=== PATIENT | male | born 1940 | race Caucasian/White ===

== ENCOUNTER → 2022-04-01 14:46 | Outpatient (CLI) | payer MEDICARE, SELFPAY ==
[2022-04-01 16:16] LABS: Prostate Specific Ag Screen 32.3 ng/ml (0.0-4.0)
== END ==
PROVIDERS: PCP Family Medicine; Visit Provider Urology
DX: Z12.5 Encounter for screening for malignant neoplasm of prostate (principal)
CPT/HCPCS: 36415; G0103

== ENCOUNTER → 2022-05-22 11:04 | Outpatient (CLI) | payer MEDICARE, SELFPAY | PROVIDERS: PCP Family Medicine; Visit Provider Urology | DX: R97.20 Elevated prostate specific antigen [PSA] (principal); Z01.812 Encounter for preprocedural laboratory examination; Z20.822 Contact with and (suspected) exposure to COVID-19 | CPT/HCPCS: C9803; U0003; U0005 ==

== ENCOUNTER 2022-05-24 09:28 | Day surgery (SDC) | payer MEDICARE, SELFPAY ==
[2022-05-23 08:48] VITALS: BMI 26.5
[2022-05-24 10:36] VITALS: BP 127/72; PULSE 85; RESP 17; TEMP 36.2; O2SAT 95
--- NOTE | 2022-05-24 10:57 | P.PN_ITS ---
[facility] Medical History BPH (benign prostatic hyperplasia) Surgical History History of colonoscopy Family History (Updated 05/23/22 @ 08:42 by Melvi Jones RN) Other No significant family history Social History Smoking Status: Never smoker alcohol intake: current substance use type: denies use current occupational status: retired Travel in the last 8 weeks: None housing: house [facility] Anesthesia Checklist Patient Identification Patient Identification: Arm Band Structural Data Admitted From: Home Planned Operative Procedure/s: Prostate BX Consent for Planned Operative Procedure(s) Verified: Yes Verified Documents: Surgical Consent and History and Physical NPO Status Verified Time NPO: 00:00 Additional verifications Anesthesia Reactions: Yes (agitation) Hx Blood Transfusions: No Blood Transfusion Reaction: No Airway Assessment C-Spine Mobility Assessed: Yes TMJ Mobility Assessed: Yes Dentition: Good Dentition Neurological Assessment Level of Consciousness: Awake and Alert Anesthesia Plan Anesthesia Risk discussed: Yes Anesthesia Plan: Verified ASA Class: II Anesthesia Type: MAC
[2022-05-24 11:45] VITALS: BP 108/62; PULSE 80; RESP 16; TEMP 36.1; O2SAT 93
[2022-05-24 11:55] VITALS: BP 98/60; PULSE 78; RESP 16; O2SAT 98
[2022-05-24 12:05] VITALS: BP 117/67; PULSE 76; RESP 16; O2SAT 96
[2022-05-24 12:15] VITALS: BP 110/64; PULSE 78; RESP 18; TEMP 36.1; O2SAT 95
--- NOTE | 2022-05-24 13:05 | EXP.OP.NOTE ---
Date of procedure: 05/24/22 Pre-op Diagnosis:: Elevated PSA Post-op Diagnosis:: Elevated PSA Procedure performed:: Prostate biopsy with transrectal ultrasound guidance Surgeon:: Uriah Mora MD CARPENTER AND JOINER:: Jac Chacon Anesthesia: MAC Estimated blood loss (mL): 0 Clinical Note:: 81-year-old white male recently seen in the office for BPH symptoms. His PSA returned at 32. He states he has never had a PSA before. His prostate examination revealed some firmness but no discrete nodule. Operative findings:: Patient's prostate measured at 28.8 cm?. There was some irregularity to the smooth muscle of the prostate especially at the bladder base. There were hypoechoic areas noted bilaterally. Operative note:: Patient taken to the operating room after informed consent was obtained. He was placed on the operating table and placed in the left lateral decubitus position. Monitored anesthesia care was administered. He had performed preoperative enema and oral antibiotics. His legs were brought up into a position and a transrectal ultrasound probe was placed into the rectum without difficulty. The prostate was visualized easily and was measured at 28.8 cm?. There was some heterogeneity to the prostate and hypoechoic areas were noted bilaterally as well as some irregularity at the bladder base. Local anesthetic was placed into each neurovascular bundle and 6 biopsies were taken from the right side and 3 from the left. No complications were noted and patient tolerated procedure well. Condition: stable Disposition: same day Specimens:: Prostate biopsies x9 Complications:: None
== END 2022-05-24 12:15 | disposition home or self-care (01) ==
PROVIDERS: PCP Family Medicine; Visit Provider Urology
DX: C61 Malignant neoplasm of prostate (principal); N40.0 Benign prostatic hyperplasia without lower urinary tract symptoms
CPT/HCPCS: 55700; 76942; 88305

== ENCOUNTER → 2022-05-30 09:43 | Outpatient (CLI) | payer MEDICARE, SELFPAY ==
--- NOTE | 2022-05-30 09:43 | NM_ITS ---
FINAL REPORT CLINICAL HISTORY: prostate cancer..pt has no pain 9:55 am 25.6 [facility] t[facility] MDP FINDINGS: EXISTING RELEVANT IMAGING STUDIES: No prior studies TECHNIQUE: The patient was injected with 25.6 mCi of technetium 99-MDP. 3 hour delayed images were obtained. FINDINGS: There are multiple foci of abnormal increased activity in the posterior ribs, thoracic and lumbar spines and the pelvis bilaterally consistent with osseous metastatic disease. Findings are most evident at approximately the T9 level. IMPRESSION: Widespread osseous metastatic disease. Recommend continued follow-up. Reviewed, Interpreted and Dictated by Christopher Longo MD Transcribed by Edgar Slaughter Authenticated and [facility]
== END ==
PROVIDERS: PCP Family Medicine; Visit Provider Urology
DX: C61 Malignant neoplasm of prostate (principal)
CPT/HCPCS: 78306; A9503

== ENCOUNTER → 2022-06-03 07:46 | Outpatient (CLI) | payer MEDICARE, SELFPAY ==
--- NOTE | 2022-06-03 07:46 | CT_ITS ---
FINAL REPORT TECHNIQUE: Axial images through the abdomen and pelvis were performed without contrast.This study was performed with techniques to keep radiation doses as low as reasonably achievable, (ALARA). Individualized dose reduction techniques using automated exposure control or adjustment of mA and/or kV according to the patient's size were employed. CLINICAL HISTORY: PROSTATE CANCER, dx 3 weeks ago FINDINGS: ABDOMEN: There are trace bilateral pleural effusions. Interstitial prominence is seen in the lung bases which is nonspecific but could represent mild edema. The heart size is normal. Limited images of the liver are unremarkable. The spleen is normal. No adrenal mass is identified. The aorta is normal in caliber. There is no significant free fluid. There is no nephrolithiasis. There is moderate right hydronephrosis and proximal hydroureter. Nonspecific hypodense lesion is seen the posterior mid left kidney measuring 15 mm. 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 There is bilateral iliac chain adenopathy, right greater than left, with the largest lymph node seen in the right external iliac chain measuring 21 mm. Findings are suspicious for metastatic disease. There is nonspecific wall thickening of the urinary bladder. Prostate is mildly enlarged. There is a tiny left inguinal hernia containing fat. Widespread blastic lesions are seen of the lower ribs, entire lumbar spine and bony pelvis consistent with metastatic disease. IMPRESSION: Metastatic adenopathy in the superior pelvis and retroperitoneum. Widespread bony metastasis. Moderate right hydronephrosis which may be related to prostate cancer. Reviewed, Interpreted and Dictated by Jim Antoine MD Transcribed by Pamela Slaughter Authenticated and [facility]
== END ==
PROVIDERS: PCP Family Medicine; Visit Provider Urology
DX: C61 Malignant neoplasm of prostate (principal)
CPT/HCPCS: 74176

== ENCOUNTER 2022-06-06 06:58 | Emergency (ER) | payer MEDICARE, SELFPAY ==
[2022-06-06 07:04] VITALS: BMI 26.4
[2022-06-06 07:09] VITALS: BP 148/86; PULSE 88; RESP 18; TEMP 36.8; O2SAT 95; BMI 26.4
[2022-06-06 07:26] LABS: Basophils # 0.1 K/mm3 (0-0.2); Basophils % 0.7 % (0.1-2.0); Eosinophils # 0.1 K/mm3 (0.0-0.4); Eosinophils % 1.2 % (0.1-12.0); Hematocrit 41.9 % (42.0-52.0); Hemoglobin 14.1 g/dL (14.1-18.0); Lymphocytes % 10.9 % (10-50); Mean Corpuscular HGB Conc 33.6 g/dL (31.8-35.4); Mean Corpuscular Hemoglobin 32.2 pg (27.0-31.2); Monocytes # 0.8 K/mm3 (0.1-1.0); Monocytes % 8.2 % (1.7-9.3); Neutrophils # 7.4 K/mm3 (1.8-7.8); Neutrophils % 79.1 % (37.0-80.0); Platelet Count 246 K/mm3 (142-424); Red Blood Count 4.37 M/mm3 (4.60-6.20); Red Cell Distribution Width 13.7 % (11.5-17.5); White Blood Count 9.3 K/mm3 (4.8-10.8)
[2022-06-06 07:33] LABS: Alanine Aminotransferase 15 U/L (12-78); Albumin/Globulin Ratio 1.3 (1.1-1.8); Alkaline Phosphatase 390 U/L (38-126); Anion Gap 13.9 mEq/L (5-15); Aspartate Amino Transferase 34 U/L (17-59); Bilirubin,Total 1.3 mg/dl (0.2-1.3); Blood Urea Nitrogen 14 mg/dl (9-20); Calcium 8.4 mg/dl (8.4-10.2); Carbon Dioxide 23 mmol/L (22.0-30.0); Chloride 98 mmol/L (98-107); Creatinine Clearance Estimated 59 mL/min (50-200); Estimated Glomerular Filt Rate 58 ml/min (>60); GFR (African American) 71 ML/MIN (>60); Globulin 3.2 g/dL (1.3-3.2); Glucose 113 mg/dl (74-100); Potassium 3.9 mmoL/L (3.5-5.1); Sodium 131 mmol/L (136-145); Total Protein,Serum 7.2 g/dl (6.3-8.2)
--- NOTE | 2022-06-06 07:33 | PC.NURSE ---
initial output was 300, another bowden bag attached due to leak in the catheter bag. pt tolerated well.
[2022-06-06 07:38] LABS: Appearance,Urine CLEAR (Clear); Bilirubin,Urine Negative (Negative); Blood, Urine 1+ (Negative); Color,Urine YELLOW (Yellow); Glucose,Urine (UA) Negative (Negative); Ketones,Urine Negative (Negative); Leukocyte Esterase,Urine Negative (Negative); Microscopic, Urine URINE MICROSCOPIC (MICROSCOPIC); Nitrate,Urine Negative (Negative); Protein,Urine Negative (Negative); Specific Gravity, Urine <= 1.005 (1.005-1.030); Urobilinogen,Urine 0.2 EU/dl (0.2)
--- NOTE | 2022-06-06 07:38 | PC.NURSE ---
urine and blood sent to the lab
--- NOTE | 2022-06-06 07:42 | PC.NURSE ---
bowden cath out put 900 cc of urine
--- NOTE | 2022-06-06 07:46 | HMH.EDUROGM ---
Discharge Plan Disposition Patient Disposition: Home, Self-Care Chief Complaint: Urogenital-Male Prescriptions Prescriptions: No Action tamsulosin 0.4 mg capsule 0.4 mg PO HS levofloxacin 500 mg tablet 500 mg PO DAILY Rx Instructions: take one tablet the day before surgery, one the day of surgery and one the day after Referrals Follow up/Referrals: Vic Tan [Primary Care Provider] - See instructions Uriah Mora MD [Staff Physician] - See instructions Clinical Impressions Clinical Impression: Acute retention of urine, Prostate cancer metastatic to bone Instructions Patient Instructions: How to Care for Your Montanez Catheter -- Male Discharge ED Provider: Randall Gil Male Urogenital HPI General Chief complaint: Urogenital-Male Stated complaint: Abdomin hard to touch,can not have BM Time Seen by Provider: 06/06/22 07:46 Mode of Arrival: Ambulatory Source of Information: Patient, Spouse and Medical Record Limitations: No Limitations Description of Symptoms (Recalled from ER Triage Doc. by RN): c/o lower abdomen pain that started a day ago and having trouble urinating for one week, having only dribbles when he goes History of Present Illness HPI Narrative: acute lower abd pain with dec urination over the last 2 days - has known prostate cancer - recent ct and bone scan - has appt this am with dr valentina SEXTON Complaint: other (diff urinating ) Onset (ago): day(s) Duration: constant Severity: moderate Reports denies other symptoms Related Data Home Medications Medication Instructions Recorded Confirmed tamsulosin 0.4 mg capsule 0.4 mg PO HS bph 04/01/22 05/24/22 levofloxacin 500 mg tablet 500 mg PO DAILY sx 05/23/22 05/24/22 Allergies Allergy/AdvReac Type Severity Reaction Status Date / Time No Known Allergies Allergy Verified 05/24/22 10:34 [facility] Medical History (Updated 06/06/22 @ 07:57 by Randall Gil MD) BPH (benign prostatic hyperplasia) Surgical History History of colonoscopy Family History (Updated 05/23/22 @ 08:42 by Melvi Jones RN) No significant family history Social History Smoking Status: Never smoker alcohol intake: current substance use type: denies use current occupational status: retired Travel in the last 8 weeks: None housing: house ROS Obtained: Yes All systems reviewed & no additional complaints except as documented Constitutional Constitutional: Denies fever(s) Genitourinary Male Genitourinary: Reports as per HPI, Reports difficulty urinating, Denies hematuria and Reports urinary hesitancy Physical Exam General General appearance: alert Head Head exam: normocephalic Eye Eye exam: Present PERRL and EOMI ENT ENT exam: Present mucous membranes moist Neck Neck exam: Present trachea midline Respiratory Respiratory exam: Absent respiratory distress Cardiovascular Cardiovascular exam: Present regular rate Abdominal Exam Abdominal exam: Present soft Abdominal tenderness: Present suprapubic and mild Comment: enlarged bladder exam: Present deferred Extremities Exam Extremities exam: Present full ROM Neurological Exam Neurological exam: Present alert, oriented X3 and CN II-XII intact Psychiatric Psychiatric exam: Present normal affect Skin Skin exam: Absent rash Medical Decision Making Medical Records Medical records reviewed: Yes I reviewed the patient's medical records. Lemuel Inquiry Pt receiving controlled substance: No Vital Signs: 06/06/22 07:09 Temperature 98.3 F Temperature Source Oral Pulse Rate [Left Radial] 88 Respiratory Rate 18 Blood Pressure [Right Arm] 148/86 H Blood Pressure Mean [Right Arm] 106 Blood Pressure Source [Right Arm] Automatic Cuff Blood Pressure Position [Right Arm] Sitting 02 Sat by Pulse Oximetry 95 Oxygen Delivery Method Room Air Lab Data Lab Results
[2022-06-06 07:51] LABS: Bacteria,Urine Trace /lpf; RBC,Urine Occasional #/hpf (0-3); Squamous Epithelial Cell,Urine Occasional #/hpf (0-5)
--- NOTE | 2022-06-06 07:56 | PC.NURSE ---
called lab and checked the status of blood in the lab
[2022-06-06 07:58] VITALS: BP 147/77; PULSE 78; RESP 18; O2SAT 96
[2022-06-06 07:59] VITALS: BP 135/76; PULSE 84; RESP 18; O2SAT 97
[2022-06-06 08:02] VITALS: BP 135/76; PULSE 84; RESP 18; TEMP 36.8; O2SAT 95
== END 2022-06-06 08:05 | disposition home or self-care (01) ==
PROVIDERS: Emergency Provider Emergency Medicine; PCP Family Medicine
DX: C61 Malignant neoplasm of prostate (principal); R33.8 Other retention of urine; C79.51 Secondary malignant neoplasm of bone
CPT/HCPCS: 51702; 80053; 81001; 85025; 99283

== ENCOUNTER 2023-12-30 07:05 | Day surgery (SDC) | payer MEDICARE, SELFPAY ==
[2023-12-30] VITALS (7 sets, daily range): BP systolic 108–130; BP diastolic 49–65; PULSE 62–73; RESP 16; TEMP 36.2–36.3; O2SAT 96–98
[2023-12-30] MEDS: CYCLOPENTOLATE 2% OPHTH SOLN 2ML BOTTLE OP ×3 (07:15→07:25)
[2023-12-30] MEDS: TETRACAINE 0.5% OPTH SOL 15ML OP ×3 (07:15→07:25)
[2023-12-30] MEDS: PHENYLEPHRINE 2.5% OPHTH SOLN 2ML OP ×3 (07:15→07:25)
[2023-12-30] MEDS: SODIUM CHLORIDE 0.9% 10ML FLUSH SYRINGE 10 ML IV ×2 (07:28→08:46)
[2023-12-30] MEDS: MIDAZOLAM 2MG/2ML VIAL 2 MG (08:45)
[2023-12-30] MEDS: TOBRAMYCIN/DEX OPTH SUSP 2.5ML OP (08:46)
[2023-12-30] MEDS: TIMOLOL 0.5% OPTH SOLN 5ML OP (08:46)
[2023-12-30] MEDS: LIDOCAINE 1% PF 2ML AMPULE 2 ML IJ (08:47)
--- NOTE | 2023-12-30 11:19 | HMH.PROCNOTE ---
[facility] Procedure Note Date: 12/30/23 Time: 11:19 Procedure Note:: Preoperative Diagnosis: Cataract combined NS Cortical Complex [Right] Eye Postop diagnosis: same Operation: Microscopic phacoemulsification with intraocular lens implant [Right] Eye Specimen: None Blood Loss: None The patient was examined in the office with a complaint of poor vision in the [right] eye. The patient reports that this interferes with ADLs such as reading, watching TV and/or driving or the vision is like looking through a foggy haze and is very troubling. The patient was examined and found to have a visually significant cataract with best corrected vision of [20/400] by refraction and/or glare testing. Treatment options, risks and benefits were explained and the patient elected to have cataract surgery in an attempt to improve their vision. The patient had the eye anesthetized with topical tetracaine, the eye ways prepped and draped in the usual fashion for cataract surgery. A paracentesis and a temporal keratotomy were made. 0.2cc of 1% lidocaine PF was placed into the anterior chamber. And aqueous/viscoelastic exchange was done and a 360 degree capsulorexis was performed. Through hydrodissection and delineation with BSS on a cannula was done. The lens nucleus was phecoemulsified with CDE of [9.26]. Residual cortical material was removed using automated I&A The capsular bag was deepened with viscoelastica and a PCIOL was placed in the capsular bag with good centration and stability. Residual viscoelastic was removed using automated I&A. The keratotomy incision was hydrated with BSS on a cannula. The wound were checked and found to be water tight. IOP was checked digitally and adjusted as needed so as not to be too high. 1 drop of timolol 0.5%, ofloxacin, prednisolone acetate and ketorolac was instilled and eye shield taped over the eye. The patient was taken to recovery in good condition and will be seen postoperatively.
== END 2023-12-30 09:21 | disposition home or self-care (01) ==
PROVIDERS: PCP Family Medicine; Visit Provider Ophthalmology
PROC: (CPT 66984; principal; 2023-12-30 08:30)
DX: H25.811 Combined forms of age-related cataract, right eye (principal)
CPT/HCPCS: 66984; V2632

== ENCOUNTER 2024-01-20 07:33 | Day surgery (SDC) | payer MEDICARE, SELFPAY ==
[2024-01-15 13:21] VITALS: BMI 26.0
[2024-01-20] VITALS (7 sets, daily range): BP systolic 117–136; BP diastolic 64–83; PULSE 68–74; RESP 18; TEMP 36.2–36.6; O2SAT 95–97
[2024-01-20] MEDS: TETRACAINE 0.5% OPTH SOL 15ML OP ×3 (08:08→08:09)
[2024-01-20] MEDS: CYCLOPENTOLATE 2% OPHTH SOLN 2ML BOTTLE OP ×3 (08:08→08:09)
[2024-01-20] MEDS: PHENYLEPHRINE 2.5% OPHTH SOLN 2ML OP ×3 (08:08→08:09)
[2024-01-20] MEDS: SODIUM CHLORIDE 0.9% 10ML FLUSH SYRINGE 10 ML IV ×2 (08:08→09:27)
[2024-01-20] MEDS: MIDAZOLAM 2MG/2ML VIAL 1 MG IV (09:15)
[2024-01-20] MEDS: TIMOLOL 0.5% OPTH SOLN 5ML OP (09:27)
[2024-01-20] MEDS: LIDOCAINE 1% PF 2ML AMPULE 2 ML IJ (09:28)
[2024-01-20] MEDS: TOBRAMYCIN/DEX OPTH SUSP 2.5ML OP (09:28)
--- NOTE | 2024-01-20 12:28 | HMH.PROCNOTE ---
[facility] Procedure Note Date: 01/20/24 Time: 12:28 Procedure Note:: Preoperative Diagnosis: Cataract combined NS Cortical Complex [left] Eye Postop diagnosis: same Operation: Microscopic phacoemulsification with intraocular lens implant [left] Eye Specimen: None Blood Loss: None The patient was examined in the office with a complaint of poor vision in the [left] eye. The patient reports that this interferes with ADLs such as reading, watching TV and/or driving or the vision is like looking through a foggy haze and is very troubling. The patient was examined and found to have a visually significant cataract with best corrected vision of [20/400] by refraction and/or glare testing. Treatment options, risks and benefits were explained and the patient elected to have cataract surgery in an attempt to improve their vision. The patient had the eye anesthetized with topical tetracaine, the eye ways prepped and draped in the usual fashion for cataract surgery. A paracentesis and a temporal keratotomy were made. 0.2cc of 1% lidocaine PF was placed into the anterior chamber. And aqueous/viscoelastic exchange was done and a 360 degree capsulorexis was performed. Through hydrodissection and delineation with BSS on a cannula was done. The lens nucleus was phecoemulsified with CDE of [7.84]. Residual cortical material was removed using automated I&A The capsular bag was deepened with viscoelastica and a PCIOL was placed in the capsular bag with good centration and stability. Residual viscoelastic was removed using automated I&A. The keratotomy incision was hydrated with BSS on a cannula. The wound were checked and found to be water tight. IOP was checked digitally and adjusted as needed so as not to be too high. 1 drop of timolol 0.5%, ofloxacin, prednisolone acetate and ketorolac was instilled and eye shield taped over the eye. The patient was taken to recovery in good condition and will be seen postoperatively.
== END 2024-01-20 09:43 | disposition home or self-care (01) ==
PROVIDERS: PCP Family Medicine; Visit Provider Ophthalmology
PROC: (CPT 66984; principal; 2024-01-20 09:00)
DX: H25.812 Combined forms of age-related cataract, left eye (principal)
CPT/HCPCS: 66984; V2632

== ENCOUNTER 2024-07-21 10:24 | Outpatient (CLI) | payer MEDICARE, SELFPAY ==
--- NOTE | 2024-07-21 10:26 | CT_ITS ---
FINAL REPORT TECHNIQUE: After the administration of oral and intravenous contrast, axial images were obtained through the abdomen and pelvis by computed tomography. The study was performed with techniques to keep radiation dose as low as reasonably achievable, (ALARA). Individual dose reduction techniques using automated exposure control or adjustment of mA and/or kV according to the patient's size were employed. CLINICAL HISTORY: abd pain COMPARISON: 06/03/2022 FINDINGS: Abdomen: There is a new, 7 mm right lower lobe nodule, may represent pulmonary metastases. Several other small pulmonary nodules are identified. The liver is normal in size and attenuation. The spleen is unremarkable. The adrenals are normal. The pancreas is unremarkable. Moderate vascular calcification is identified. There is a left renal cyst. There is mild retroperitoneal adenopathy. Largest para aortic at the L3 level measures 16 mm, previously measured 12 mm. The aorta is normal in caliber. There is no free fluid. Pelvis: The appendix is not identified. There is descending and sigmoid diverticulosis. There is bladder wall thickening with adjacent stranding. Findings are similar to prior, likely inflammatory. Multiple bladder diverticula are also stable. There is no free fluid. There is worsening pelvic adenopathy. Largest right external iliac node measures 31 mm, previously measured 21 mm. Other enlarged lymph nodes are seen. Widespread sclerotic metastatic disease is visually stable. IMPRESSION: Worsening metastatic adenopathy in the abdomen and pelvis. New right lower lobe nodule, may represent pulmonary metastasis. Recommend follow-up in 6 months. Stable widespread bony metastatic disease. Stable bladder wall thickening with adjacent inflammatory changes. Reviewed, Interpreted and Dictated by Sharath Stern III, MD Transcribed by Barndy Huizar Authenticated and [facility]
--- NOTE | 2024-07-21 10:49 | HMH.ITSTN ---
Mr. Daniel Alcaraz expressed to our radiology litigation secretary that he did not want new labs once he was told his labs were 34 old which was against our policy which is within 30 days. He was aware of why we wanted new labs and was okay with contining with scan without new labs. We did receive his lab work from his doctos office, 06/16/24 Bun 10, creatinine .75 GFR 90. He did not have any other criteria that would need him to have new labs other that he was over 62.
[2024-07-21] MEDS: SODIUM CHLORIDE 0.9% 10ML SYR (RAD ONLY) 10 ML IV (10:55)
[2024-07-21] MEDS: BARIUM SULFATE(READI-CAT2);450ML BOTTLE 450 ML PO (10:55)
[2024-07-21] MEDS: IOPAMIDOL-370 (76%);100ML BOTTLE 75 ML IV (10:55)
== END 2024-07-21 23:59 | disposition home or self-care (01) ==
LOC: RAD 10:25
PROVIDERS: PCP Family Medicine; Visit Provider Surgery
DX: R10.9 Unspecified abdominal pain (principal)
CPT/HCPCS: 74177; Q9967

== ENCOUNTER 2024-07-30 09:24 | Outpatient (CLI) | payer MEDICARE, SELFPAY ==
--- NOTE | 2024-07-30 09:40 | ECG_ITS ---
APPROVED REPORT Exam: Resting ECG HR:72 bpm ECG Measurements Heart Rate 72 AXES OR 134 P 26 QRSd 74 QRS 49 QT 384 T 51 QTc 409 Conclusion SINUS RHYTHM NORMAL ECG UNCONFIRMED REPORT Electronically signed by : Eric Burks MD 07/30/2024 21:09:08
[2024-07-30 10:23] LABS: Chloride 105 mmol/L (98-107); Potassium 4.1 mmoL/L (3.5-5.1); Sodium 140 mmol/L (136-145)
[2024-07-30 10:26] LABS: Anion Gap 13.1 mEq/L (5-15); Blood Urea Nitrogen 9 mg/dl (9-20); Carbon Dioxide 26 mmol/L (22.0-30.0); Estimated Glomerular Filt Rate 93 ml/min (>60); GFR (African American) 112 ML/MIN (>60)
[2024-07-30 10:27] LABS: Calcium 9.3 mg/dl (8.4-10.2); Glucose 105 mg/dl (74-100)
[2024-07-30 10:28] LABS: Basophils % 0.7 % (0.1-2.0); Eosinophils # 0.2 K/mm3 (0.0-0.4); Hematocrit 40.6 % (42.0-52.0); Hemoglobin 13.9 g/dL (14.1-18.0); Lymphocytes # 1.3 K/mm3 (0.7-4.5); Lymphocytes % 24.7 % (10-50); Mean Corpuscular HGB Conc 34.2 g/dL (31.8-35.4); Mean Corpuscular Hemoglobin 31.9 pg (27.0-31.2); Mean Corpuscular Volume 93.5 fl (80-94); Mean Platelet Volume 7.7 fl (7.4-10.4); Monocytes # 0.5 K/mm3 (0.1-1.0); Monocytes % 8.9 % (1.7-9.3); Neutrophils # 3.2 K/mm3 (1.8-7.8); Neutrophils % 61.6 % (37.0-80.0); Platelet Count 172 K/mm3 (142-424); Red Blood Count 4.35 M/mm3 (4.60-6.20); White Blood Count 5.2 K/mm3 (4.8-10.8)
== END 2024-07-30 23:59 | disposition home or self-care (01) ==
LOC: PREOP 09:25
PROVIDERS: PCP Family Medicine; Visit Provider Surgery
DX: Z01.810 Encounter for preprocedural cardiovascular examination (principal); L98.9 Disorder of the skin and subcutaneous tissue, unspecified
CPT/HCPCS: 80048; 85025; 93005

== ENCOUNTER 2024-08-02 06:41 | Day surgery (SDC) | payer MEDICARE, SELFPAY ==
[2024-07-30 09:35] VITALS: BMI 26.7
[2024-08-02] VITALS (8 sets, daily range): BP systolic 90–168; BP diastolic 36–98; PULSE 71–76; RESP 12–18; TEMP 36.1–36.2; O2SAT 91–98
[2024-08-02] MEDS: 0.9 % SODIUM CHLORIDE 1000ML 1,000 ML 25 ML IV (07:10)
--- NOTE | 2024-08-02 07:44 | EXP.ANES.CKL ---
[facility] Disclaimer: The information contained in this section may have been updated after the patient was seen, as this information can be updated by other users. Medical History History of prostate cancer BPH (benign prostatic hyperplasia) Surgical History History of prostate biopsy History of surgery on arm History of colonoscopy Family History Other No significant family history Social History Smoking Status: Former smoker alcohol intake: current alcohol intake frequency: 0-2 drinks per day substance use type: denies use current occupational status: retired housing: house [facility] Anesthesia Checklist Patient Identification Patient Identification: Verbal (Name & ) Structural Data Admitted From: Home Planned Operative Procedure/s: excision neoplasm abd wall and LUE Consent for Planned Operative Procedure(s) Verified: Yes NPO Status Verified Time NPO: 00:00 Additional verifications Anesthesia Reactions: Yes (agitation) Hx Blood Transfusions: No Blood Transfusion Reaction: No Airway Assessment Mallampati Score:: Class II C-Spine Mobility Assessed: Yes TMJ Mobility Assessed: Yes Dentition: Good Dentition Neurological Assessment Level of Consciousness: Awake, Alert and Appropriate Anesthesia Plan Anesthesia Risk discussed: Yes Anesthesia Plan: Verified ASA Class: II Anesthesia Type: General
[2024-08-02] MEDS: CEFAZOLIN SODIUM 2 GM in 0.9 % SODIUM CHLORIDE 100 ML IV (08:21)
[2024-08-02] MEDS: LIDOCAINE 1% 20ML MDV 20 ML (08:40)
[2024-08-02] MEDS: ROPIVACAINE 0.5% 30ML VIAL 150 MG (08:40)
--- NOTE | 2024-08-02 09:42 | EXP.OP.NOTE ---
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 Suspicious skin lesion left upper extremity Post-op Diagnosis:: Same Procedure performed:: Excision of left upper extremity skin lesion (excisional length 4 cm) with intermediate complexity closure Excision probable skin cancer abdominal wall (excisional length 7 cm) with intermediate complexity closure Surgeon:: Sharath Blackwell MD REGIONAL BRANCH MANAGER:: Jonathan Borges Anesthesia: LMA Estimated blood loss (mL): 10 Operative findings:: Subdermal firm nodule left upper extremity Ulcerated lesion in anterior abdominal wall Operative note:: Consent was obtained patient was taken the operating room. He was positioned in supine position. General anesthesia was induced via endotracheal tube. Attention was first turned to the left upper extremity lesion. This was positioned and prepped and draped in the standard surgical fashion. He had somewhat of an elongated firm nodule. Uncertain etiology or characteristics. Skin was marked with a skin marker for planned limited excision. Local anesthetic was infiltrated. Elliptical skin incision was made. Skin with the nodule was dissected free from the subcutaneous tissues using sharp dissection. It was marked with a skin marker with the short suture superiorly and the long suture somewhat the lateral leg. Hemostasis was achieved with electrocautery. Local anesthetic was infiltrated. Deep dermal tissues were reapproximated with interrupted 3-0 Vicryl. Skin was closed with interrupted 4-0 nylon. Clean dry sterile dressing was applied. Next attention was turned to the lesion on the upper abdomen. He was reprepped and draped in the standard surgical fashion. Lesion was marked with skin marker for planned elliptical incision. This was a rather large ulcerated lesion. Local anesthetic was infiltrated. Full-thickness skin incision was made. Skin was dissected free from the underlying normal subcutaneous tissues using electrocautery. The excised lesion was marked with a short suture superiorly and a long suture at the left lateral. Hemostasis was achieved electrocautery. Deep dermal tissues were reapproximated interrupted 3-0 Vicryl. Skin was closed with interrupted 3-0 nylon. Clean dry sterile dressing was applied. . Condition: stable Disposition: PACU Complications:: None immediately apparent
--- NOTE | 2024-08-02 09:52 | EXP.ANES.I ---
[facility] Anesthesia Record Part I Anesthesia Record I Intake, IV Amount: 700 Hydration: Adequate Estimated blood loss (mL): 10 Urine output (mL): 0 Blood Products used (#): none Blood Pressure: 90/36 SaO2: 94 Pulse Rate: 76 Airway Patency: Patent Respiratory Rate: 12 Temperature: 97.2 F Patient is:: Drowsy and Stable Stable to PACU at:: 09:44
--- NOTE | 2024-08-03 07:43 | P.PNANES_ITS ---
[facility] Anesthesia Record Part II Anesthesia Record Part II Discharge Time: 10:14 Destination: Surgical Day Care (OP Surgery) PACU nurse assessment reviewed?: Yes Patient Condition:: Good Anesthesia Complications:: None Swallowing reflex intact?: Yes Airway Patency: Patent Cyanosis?: No Blood Pressure: 137/84 SaO2: 98 Respiratory Rate: 16 Pulse Rate: 71 Temperature: 97.2 F Mental Status: Alert & Oriented Pain level:: 0 Nausea and/or vomitting:: None Intake, IV Amount: 0 Hydration: Adequate
[2024-08-03 07:44] VITALS: BP 137/84; PULSE 71; RESP 16; TEMP 36.2; O2SAT 98
== END 2024-08-02 10:45 | disposition home or self-care (01) ==
PROVIDERS: PCP Family Medicine; Visit Provider Surgery
PROC: (CPT 11604; principal; 2024-08-02 08:15)
DX: C79.2 Secondary malignant neoplasm of skin (principal)
CPT/HCPCS: 11604; 11606; 12032; 88305; 96374; J0690; J1100; J2405; J3010; J7030

== ENCOUNTER 2024-09-30 10:50 | Outpatient (CLI) | payer MEDICARE, SELFPAY ==
[2024-09-30 12:21] LABS: Prostate Specific Ag, Diagnost 0.387 ng/ml (0.0-4.0)
[2024-10-08 08:21] LABS: Free Testosterone (Direct) 3.5 pg/mL (6.6-18.1)
== END 2024-09-30 23:59 | disposition home or self-care (01) ==
LOC: LAB 10:51
PROVIDERS: PCP Family Medicine; Visit Provider Internal Medicine Medical Oncology
DX: C61 Malignant neoplasm of prostate (principal); C79.51 Secondary malignant neoplasm of bone
CPT/HCPCS: 36415; 84153; 84402; 84403

== ENCOUNTER 2024-11-08 07:58 | Outpatient (CLI) | payer MEDICARE, SELFPAY ==
--- NOTE | 2024-11-08 07:58 | CT_ITS ---
FINAL REPORT CLINICAL HISTORY: prostate cancer, RT ILIAC LYMPH NODE FINDINGS: CT GUIDED LYMPH NODE FINE NEEDLE ASPIRATION AND CORE BIOPSY HISTORY: History of prostate cancer. Right iliac adenopathy. ATTENDING PHYSICIAN: Dr. Antoine PHYSICIAN [facility] CONSULTANT: Oscar Vazquez PA-C PROCEDURE: After informed consent was obtained and a timeout was performed, the patient was prepped and draped in usual sterile fashion over the chest. Utilizing local anesthesia and sterile technique with a coaxial system, access to lesion was obtained under direct CT guidance. A total of 4 separate 18-gauge core biopsies were obtained. In addition, fine-needle aspiration was performed. Post biopsy films demonstrate no evidence of acute complication. The patient received moderate procedural sedation. The patient tolerated the procedure well and left the department in good condition. PROCEDURAL SEDATION: 2 mg of IV Versed and 50 mcg of Fentanyl were administered. Continuous vital sign monitoring was used. An RN was present during the sedation process. Overall sedation time was 30 minutes. IMPRESSION: Status post CT guided fine-needle aspiration and core biopsy of right inguinal lymph node without immediate complication. Films reviewed , interpreted and dictated by Dr. Antoine. Transcribed by Oscar Vazquez PA-C. Reviewed, Interpreted and Dictated by Jim Antoine MD Transcribed by NANCY Rubio Authenticated and [facility]
[2024-11-08 08:21] VITALS: BMI 26.4
[2024-11-08 08:27] VITALS: BP 115/55; PULSE 71; RESP 17; TEMP 36.8; O2SAT 94
[2024-11-08 08:40] LABS: INR 0.91 (0.9-1.1); Prothrombin Time 10.1 seconds (9.2-12.1)
[2024-11-08 08:42] LABS: Basophils % 0.7 % (0.1-2.0); Eosinophils # 0.2 K/mm3 (0.0-0.4); Eosinophils % 3.5 % (0.1-12.0); Hematocrit 37.1 % (42.0-52.0); Hemoglobin 12.6 g/dL (14.1-18.0); Lymphocytes # 1.2 K/mm3 (0.7-4.5); Lymphocytes % 20.1 % (10-50); Mean Corpuscular Hemoglobin 31.4 pg (27.0-31.2); Mean Corpuscular Volume 92.5 fl (80-94); Mean Platelet Volume 9.9 fl (7.4-10.4); Monocytes # 0.6 K/mm3 (0.1-1.0); Monocytes % 10.8 % (1.7-9.3); Neutrophils # 3.7 K/mm3 (1.8-7.8); Neutrophils % 63.9 % (37.0-80.0); Platelet Count 141 K/mm3 (142-424); Red Blood Count 4.01 M/mm3 (4.60-6.20); Red Cell Distribution Width 13.6 % (11.5-17.5); White Blood Count 5.7 K/mm3 (4.8-10.8)
[2024-11-08] MEDS: LACTATED RINGERS 1000ML 1,000 ML 25 ML IV (08:51)
[2024-11-08] MEDS: FENTANYL 100MCG/2ML VIAL 100 MCG IV (09:18)
[2024-11-08] MEDS: MIDAZOLAM 2MG/2ML VIAL 2 MG IV (09:18)
[2024-11-08 09:50] VITALS: BP 105/59; PULSE 71; RESP 17; O2SAT 94
[2024-11-08 10:05] VITALS: BP 110/63; PULSE 70; RESP 16; O2SAT 94
[2024-11-08 10:20] VITALS: BP 90/59; PULSE 74; RESP 17; O2SAT 95
[2024-11-08 10:35] VITALS: BP 121/62; PULSE 77; RESP 16; O2SAT 95
== END 2024-11-08 23:59 | disposition home or self-care (01) ==
LOC: RAD 07:58
PROVIDERS: PCP Family Medicine; Visit Provider Internal Medicine Medical Oncology
DX: C61 Malignant neoplasm of prostate (principal); C79.51 Secondary malignant neoplasm of bone
CPT/HCPCS: 77012; 85025; 85610; J2250; J3010; J7120

== ENCOUNTER 2025-03-16 10:43 | Outpatient (CLI) | payer MEDICARE, SELFPAY ==
[2025-03-16 10:57] LABS: Hematocrit 39.7 % (42.0-52.0); Hemoglobin 12.8 g/dL (14.1-18.0); Immature Granulocytes % 1.1 %; Mean Corpuscular HGB Conc 32.2 g/dL (31.8-35.4); Mean Corpuscular Hemoglobin 30.2 pg (27.0-31.2); Mean Corpuscular Volume 93.6 fl (80-94); Nucleated Red Blood Cells % 0 %; Platelet Count 148 K/mm3 (142-424); Red Blood Count 4.24 M/mm3 (4.60-6.20); Red Cell Distribution Width-SD 46.7 fL; White Blood Count 6.2 K/mm3 (4.8-10.8)
[2025-03-16 12:40] LABS: Alanine Aminotransferase 12 U/L (12-78); Albumin Level 4.0 g/dl (3.5-5.0); Albumin/Globulin Ratio 1.4 (1.1-1.8); Alkaline Phosphatase 62 U/L (38-126); Anion Gap 15.4 mEq/L (5-15); Aspartate Amino Transferase 24 U/L (17-59); Bilirubin,Total 0.6 mg/dl (0.2-1.3); Blood Urea Nitrogen 11 mg/dl (9-20); Calcium 9.4 mg/dl (8.4-10.2); Carbon Dioxide 26 mmol/L (22.0-30.0); Chloride 103 mmol/L (98-107); Creatinine,Serum 0.80 mg/dl (0.66-1.25); Estimated Glomerular Filt Rate 93 ml/min (>60); GFR (African American) 112 ML/MIN (>60); Globulin 2.8 g/dL (1.3-3.2); Glucose 104 mg/dl (74-100); Potassium 4.4 mmoL/L (3.5-5.1); Sodium 140 mmol/L (136-145); Total Protein,Serum 6.8 g/dl (6.3-8.2)
== END 2025-03-16 23:59 | disposition home or self-care (01) ==
LOC: LAB 10:43
PROVIDERS: PCP Family Medicine; Visit Provider Internal Medicine Medical Oncology
DX: C82.90 Follicular lymphoma, unspecified, unspecified site (principal)
CPT/HCPCS: 36415; 80053; 83615; 85025

== ENCOUNTER 2025-08-23 12:12 | Outpatient (CLI) | payer MEDICARE, SELFPAY ==
--- OUTSIDE RECORDS SUMMARY | 2025-08-23 12:13 | XMS_ITS | Clinical Summary ---
Author Organization [facility] Address [address] [place] [address] Care Team Providers Care Surgical Scrub Tech Name Role Phone Anthony Weir MD Primary Care Provider [phone] Allergies No known active allergies Medications Ascorbic Acid (VITAMIN C ER PO) Take by mouth. Active sildenafil (REVATIO) 20 MG tablet Take 1-2 TABLETS PER event 10/28/2019 Active albuterol sulfate HFA 108 (90 Base) MCG/ACT inhaler 1-2 puffs q 4-6 hours prn for SOB or wheeze 1 inhaler 11/09/2019 Active Social History Tobacco Use Types Packs/Day Years Used Date Smoking Tobacco: Former Smokeless Tobacco: Never Alcohol Use Standard Drinks/Week Comments Yes 2 (1 standard drink = 0.6 oz pur e alcohol) Abuse Screen Answer Date Recorded Unsafe at Home or Work/School Not on file Feels Threatened by Someone? Not on file 08/2023 Does Anyone Keep You from Co ntacting Others or Doint Things Outside the Home? Not on file 06/19/2023 Physical Sign of Abuse Present Not on file 1 Housing Stability Answer Date Recorded Current Living Arrangements Not on file 06/08 Potentially Unsafe Housing Conditions Not on sophie e 06/19/2023 Family and Community Support Answer Gregg e Recorded Help with Day-to-Day Activities Not on file 06/19/2023 Lonely or Isolated Not on file 06/19/2023 Employment Answer Date Recorded Do you want help finding or keeping work or a tristin b? Not on file 06/19/2023 Disabilities Answer Date Recorded Concentrating, Remembering, or Making Decisions Difficulty Not on file 06/19/2023 Doing Errands Independently Difficulty Not on fi le 06/19/2023 Education Answer Date Recorded Help with school or training? Not on file Preferred Language Not on file 06/19/2023 Sex and Gender Information Value Date Recorded Sex Assigned at Not on file Legal Sex Male 1:19 PM EST Gender Identity Not on file Sexual Orientation Not on file Last Filed Vital Signs Vital Sign Reading Time Taken Comments Blood Pressure 110/73 11/09/2019 1:21 PM EST Pulse 83 11/09/2019 1:21 PM EST Temperature 36.7 C (98 F) 11/09/2019 1:21 PM EST Respiratory Rate 16 11/09/2019 1:21 PM EST Oxygen Saturation 96% 11/09/2019 1:21 PM EST Inhaled Oxygen Concentration - - Weight 86.5 kg (190 lb 12.8 oz) 11/09/2019 1:21 PM EST Height 179.1 cm (5' 10.5 ) 11/09/2019 1:21 PM ES T Body Mass Index 26.99 11/09/2019 1:21 PM EST Plan of Treatment Health Maintenance Due Date Last Done Comments TDAP/TD VACCINES (1 - Tdap) 1961 Pneumococcal Vaccine 50+ (1 of 1 - PCV) 1992 ZOSTER VACCINE (1 of 2) 1992 RSV Vaccine - Adults (1 - 1-dose 75+ series) 8 ANNUAL PHYSICAL 10/19/2019 INFLUENZA VACCINE 04/08/2025 COVID-19 Vaccine (1 - season) 2025 Insurance MEDICARE A & B [address] [place], [place] [id number] Care Teams Surgical Scrub Tech Relationship Specialty Start Date End Date Anthony Weir MD [address] [place] [address] PCP - General Family Medicine 10/19/19
[2025-08-23 12:44] LABS: Blood Urea Nitrogen 11 mg/dl (9-20); Creatinine,Serum 1.00 mg/dl (0.66-1.25); Estimated Glomerular Filt Rate 72 ml/min (>60); GFR (African American) 87 ML/MIN (>60)
--- NOTE | 2025-08-23 13:00 | CT_ITS ---
FINAL REPORT TECHNIQUE: CT examination of the abdomen and pelvis was performed after the administration of intravenous contrast using axial images from the lung bases through the pelvis. Multiplanar reconstructions in the sagittal and coronal planes were subsequently performed. This study was performed with techniques to keep radiation doses as low as reasonably achievable (ALARA). Individualized dose reduction techniques using automated exposure control or adjustment of mA and/or kV according to the patient's size were employed. CLINICAL HISTORY: non-hodkins lymphoma COMPARISON: 07/21/2024 FINDINGS: CT ABDOMEN AND PELVIS WITH CONTRAST TECHNIQUE: IV contrast enhanced exam COMPARISON: 07/21/2024. FINDINGS: ABDOMEN: There is a subpleural right lower lobe nodule best seen on image #11 of series 2, which measures up to 5 mm in size, stable. The other nodules seen on the prior exam in the right lower lobe have resolved. There are multiple mildly enlarged retroperitoneal nodes again noted. There is a lobular node in the region of the left superior mesenteric artery measuring 16 x 11 mm in size, stable. There is a left para-aortic node just below the renal vessels measuring 17 mm, was previously 16 mm. There is mild adenopathy in the adriel hepatis measuring up to 16 mm in size, stable. There is stranding in the mesenteric fat, improved since the prior exam, with left lateral mesenteric lymph nodes measuring up to 10 mm, previously 12 mm. PELVIS: There is moderate right external iliac chain adenopathy, measuring up to 30 mm in size, stable. There is left external iliac chain adenopathy, measuring up to 16 mm, also stable. A right inguinal node measures 17 mm, was previously 8 mm. IMPRESSION: 1. Widespread adenopathy is once again identified, mostly stable with improvement at several levels, the exception being an enlarged right inguinal node measuring 17 mm, was previously 8 mm. 2. Stable subpleural right lower lobe nodule, with other nodules identified in the right lower lobe on the previous exam resolved. This study was performed using automated techniques to achieve radiation exposure as low as reasonably achievable Reviewed, Interpreted and Dictated by Jim Antoine MD Transcribed by Sienna Elena Authenticated and [facility]
[2025-08-23] MEDS: IOPAMIDOL-370 (76%);100ML BOTTLE 75 ML IV (13:06)
[2025-08-23] MEDS: SODIUM CHLORIDE 0.9% 10ML SYR (RAD ONLY) 10 ML IV (13:06)
== END 2025-08-23 23:59 | disposition home or self-care (01) ==
LOC: RAD 12:12
PROVIDERS: PCP Family Medicine; Visit Provider Internal Medicine Medical Oncology
DX: C82.90 Follicular lymphoma, unspecified, unspecified site (principal); R59.1 Generalized enlarged lymph nodes; R91.8 Other nonspecific abnormal finding of lung field
CPT/HCPCS: 36415; 74177; 82565; 84520; Q9967